=== PATIENT | male | born 1940 | race Caucasian/White ===

== ENCOUNTER → 2017-03-12 | Outpatient (CLI) | payer OTHER ==
[~2017-03-12] MED LIST: ALT25 PO; ASPEC325 PO; CINNAMON EXTRACT; GLC500 PO; LRT5 PO; LVNISUNK SC; MULT-506 PO; OMEG10007 PO; PRLSR20 PO
[2017-03-12 17:40] LABS: SYNOVIAL FLUID APPEARANCE BLOODY; SYNOVIAL FLUID COLOR RED; SYNOVIAL FLUID MONONUC RELAT 78.7 %; SYNOVIAL FLUID POLYNUC RELAT 21.3 %
== END | disposition home or self-care (01) ==
LOC: C.LAB 14:58
PROVIDERS: ATTEND Physician Assistant
DX: M70.22 Olecranon bursitis, left elbow (principal)